=== PATIENT | female | born 1975 | race Caucasian/White ===

== ENCOUNTER 2018-02-13 13:59 | Outpatient (CLI) | payer BC ==
--- NOTE | 2018-02-18 11:42 | MMO ---
SCREENING MAMMOGRAPHY: Date: 02-13-15 Comparison: 06-15-15 History: Screening mammography. FINDINGS: This study is interpreted with the assistance of computer aided detection. Scattered fibroglandular densities are present. Stable intermamillary lymph nodes are seen on the lef t. No dominant mass or architectural distortion. No concerning microcalcifications are noted. IMPRESSION: BIRADS 2 - benign findings. Recommend annual screening mammography. POS: [facility]
== END 2018-02-13 14:00 | disposition home or self-care (01) ==
LOC: SCSMAMMO 13:59
PROVIDERS: ATTEND Obstetrics & Gynecology
DX: Z12.31 Encounter for screening mammogram for malignant neoplasm of breast (principal)
CPT/HCPCS: 77067

== ENCOUNTER 2018-02-18 09:40 | Outpatient (CLI) | payer BC | END 2018-02-18 09:41 | disposition home or self-care (01) | LOC: RAD 09:40 → BICULT 09:41 | DX: N97.9 Female infertility, unspecified (principal) | CPT/HCPCS: 76856 ==